=== PATIENT | male | born 1995 | race Caucasian/White ===

== ENCOUNTER 2019-01-06 23:03 | Emergency (ER) | payer OTHER ==
[2019-01-06 23:17] VITALS: BP 131/78; PULSE 73; TEMP 98.4; BMI 24.6
--- NOTE | 2019-01-07 00:46 | PDOC ---
History of Present Illness - General Chief Complaint: Choking Sensation Stated Complaint: STEAK STUCK IN THROAT Time Seen by Provider: 01/06/19 23:52 - History of Present Illness Initial Comments: Kem Werner is an otherwise healthy 23yo who presents to the ED with the sensation of food stuck in his throat. He reports that he had a large bite of steak and felt that it did not go down all the way; he felt that it was stuck at chest level. He states that he tried drinking water, and the water came up. He has had similar episodes in the past, but the sensation has always resolved after a short period of time. His mother talked him into being see in the ED today because the sensation lasted for over 2 hours. Per his mother, Kem was evaluated 6-7 years ago by GI after a similar episode. She was told that he had narrowing of the esophagus, and he was instructed to always cut his food into small pieces and chew thoroughly. However , since he turned 23 he has not followed up with a doctor and no longer sees GI. Past History - Past Medical History Allergies/Adverse Reactions: Allergies Allergy/AdvReac Type Severity Reaction Status Date / Time No Known Allergies Allergy Verified 04/06/13 14:24 Home Medications: Ambulatory Orders No Home Medications 0 dose .ROUTE UTDICT 11/02/12 Asthma: Yes - Surgical History Appendectomy: Yes - Suicide/Smoking/Psychosocial Hx Smoking Status: No Smoking History: Never smoked Number of Cigarettes Smoked Daily: 0 Hx Alcohol Use: No Drug/Substance Use Hx: No Review of Systems - Review of Systems Comments:: General: No fevers, no chills, no weight or appetite change, no malaise HEENT: No changes in vision, no changes in hearing, no congestion, no sore throat CV: No chest pain, no palpitations, no LE edema Pulm: No SOB, no cough, no wheezing GI: No nausea or vomiting, no change in bowel habits, no melena. See HPI : No frequency, no urgency, no dysuria Musc: No back pain, no joint swelling, no recent injury Skin: No rash, no lesions, no erythema Endo: No excessive thirst, no heat/cold intolerance Heme: No unusual bruising or bleeding, no swollen glands Neuro: No syncope, no numbness/tingling, no focal weakness Vasc: No claudication Psych: No recent change in mood, no SI or HI *Physical Exam - Vital Signs Last Vital Signs Temp Pulse Resp BP Pulse Ox 98.4 F 73 19 131/78 99 01/06/19 23:14 01/06/19 23:14 01/06/19 23:14 01/06/19 23:14 01/06/19 23:14 - Physical Exam Comments: General: Comfortable, no acute distress HEENT: PERRL, EOMI, MMM, voice normal, normal neck ROM Cards: RRR, no murmur appreciated Pulm: Comfortable on room air, clear to auscultation bilaterally Abd: Soft, nontender, nondistended. Well healed surgical scars Ext: Atraumatic. No LE edema. ROM intact. WWP Skin: Normal color, no rashes or lesions Neuro: A&Ox3, CN grossly intact, normal speech, motor/sensory grossly intact and symmetric Psych: Mood appropriate to situation Medical Decision Making - Medical Decision Making 01/07/19 00:44 Kem Werner is an otherwise healthy 23yo who presents to the ED with the sensation of food stuck in his throat. He was previously diagnosed with esophageal narrowing 6-7 years ago but was lost to follow up. - Symptoms resolved prior to being seen in the ED - Observed drinking water with no difficulty - Instructed to eat small bites, given GI follow up. Will d/c home Discussed with Dr Lyon. Alana Soni PGY2 *DC/Admit/Observation/Transfer Diagnosis at time of Disposition: Sensation of foreign body in esophagus - Discharge Dispostion Disposition: HOME Condition at time of disposition: Stable Decision to Admit order: No - Referrals Referrals: Sam Meneses DO [Staff Physician] - - Patient Instructions Printed Discharge Instructions: Esophageal Dilation Additional Instructions: Discharge Instructions: You were seen in the emergency room for the sensation of something stuck in your throat. This sensation resovled without any intervention. Please make sure you are taking small bites and chewing your food well. Follow up with your primary doctor within a week. You will also need to see a GI specialist. You may discuss this with your regular doctor, but you have been given contact information for Dr Meneses if you want to make an appointment on your own. Seek immediate care for any recurring or worsening symptoms, inability to swallow any food, persistent vomiting, or any other medical emergency. - Post Discharge Activity
== END 2019-01-07 00:51 | disposition home or self-care (01) ==
LOC: JER 23:03
DX: K22.8 Other specified diseases of esophagus (principal)
CPT/HCPCS: 99281-25

== ENCOUNTER 2021-02-14 20:08 | Emergency (ER) | payer BC, OTHER ==
[2021-02-14 20:38] VITALS: BP 133/56; PULSE 80; TEMP 98.1; BMI 23.6
== END 2021-02-14 23:17 | disposition home or self-care (01) ==
LOC: JER 20:08
DX: J02.9 Acute pharyngitis, unspecified (principal)
CPT/HCPCS: 87651; 99283-25; C9803; U0003; U0005